=== PATIENT | female | born 1960 | race Caucasian/White ===

== ENCOUNTER 2016-12-16 14:19 | Inpatient (IN) ==
[2017-01-07] MEDS ORDERED: ACETAMINOPHEN 500 MG TABLET PO ONE (06:00)
[2017-01-07] MEDS ORDERED: CEFAZOLIN 1 G INJECTION IVP ONE (06:00)
[2017-01-07] MEDS ORDERED: FAMOTIDINE PB 20 MG/50 ML BAG IV ONE (06:00)
[2017-01-07] MEDS ORDERED: LIDOCAINE 1% (10mg/ml) 10mL MDV SQ ONE (06:00)
[2017-01-07] MEDS ORDERED: ONDANSETRON 4 MG/2 ML INJECTION IVP ONE (06:00)
[2017-01-07] MEDS ORDERED: TRANEXAMIC ACID 1,000 MG in NS 100 ML IV ONE ×2 (06:00→07:00)
[2017-01-07] MEDS ORDERED: NOZIN NASAL SWAB NAS ONE ×2 (06:00→13:46)
[2017-01-07] MEDS ORDERED: METOCLOPRAMIDE 10mg/2ml INJECTION IVP ONE (06:00)
[2017-01-07] MEDS ORDERED: MELOXICAM 15 MG TABLET PO ONE (06:00)
[2017-01-07] MEDS ORDERED: EPINEPHrine 0.25 MG, BUPIVACAINE 0.25% PF 30 ML, MORPHINE SULFATE 15 MG, KETOROLAC INJ ... OPSITE ONE (08:00)
[2017-01-07 08:14] VITALS: BMI 38.2
[2017-01-07] MEDS ORDERED: LIDOCAINE 1% (10mg/ml) 2mL INJ PF SDV ID ONE (08:31)
[2017-01-07] MEDS: LR 1,000 ML IV SCH ×3 (08:35→12:23)
[2017-01-07] MEDS ORDERED: VANCOMYCIN 1,000 MG INJECTION ONE (10:13)
[2017-01-07] MEDS ORDERED: MIDAZOLAM 2mg/2ml INJECTION ONE (10:23)
[2017-01-07] MEDS ORDERED: PROPOFOL 500 MG/50 ML VIAL IV ONE (10:31)
--- NOTE | 2017-01-07 11:03 | History & Physical Update ---
- History and Physical Update Date: 01/07/17 Update: I evaluated this patient and found no changes in the history and clinical exam findings. The treatment plan and recommendations are also unchanged from the previous documentation.
[2017-01-07] MEDS ORDERED: VANCOMYCIN 1,000 MG INJECTION IAR ONE (12:00)
[2017-01-07] MEDS ORDERED: PROPOFOL 20 ML ONE ×2 (12:05)
--- NOTE | 2017-01-07 12:11 | Operative Note ---
- Procedure Date of Admission: 01/07/17 Side: right Preoperative Diagnosis: knee primary DJD Postoperative Diagnosis: Same as preoperative diagnosis. Operation: total knee arthroplasty Surgeon: Westley Alcaraz MD Ota: Cedric Louis Complications: None. Regional/Trunk Block: Spinal Peripheral Nerve Block: Saphenous-Right Estimated Blood Loss: See Anesthesia Record. Fluids: Please see Anesthesia Record. Description of Procedure: and her right knee were identified and marked in the preoperative holding area. She was brought back to the operating suite and placed supine on the operating table. Spinal anesthetic was administered. The operative lower extremity was prepped and draped in a sterile fashion. Timeout was performed. She had a fixed varus deformity. An anterior midline incision followed by medial parapatellar arthrotomy was performed. The tourniquet was not used until cementing. Hemostasis was obtained with electrocautery. The patella was resurfaced to a size 29. She had significant disease in the medial compartment and to a lesser extent in the patellofemoral compartment. The majority of her cartilage loss was on the femur. A distal femoral osteotomy was then performed in 5 of valgus using intramedullary guide. The femur was sized at a 3 and rotation set using the epicondylar axis. Distal femoral cuts were performed with a 4-in-1 cutting block. A proximal tibial cut was then made perpendicular to its long axis using an extramedullary guide. At this point remaining meniscus and osteophytes were removed and joint cocktail was injected throughout soft tissue. Trial components were placed with a 9 mm spacer. This allowed for full extension and flexion and the patella tracked well. The leg was then exsanguinated and the tourniquet inflated to 250 mmHg. The tibia was then stamped at a size 3 at the proper rotation. The bone was then prepared for cementing and Mathew Triathal[employer] components were cemented into place and allowed to cure in extension. The tourniquet was then let down and hemostasis obtained with electrocautery. Betadine solution was used during the curing period for 3 minutes. 1 g of vancomycin powder was placed into the joint before the capsulotomy was repaired with #1 Vicryl. I then left my retail assistant manager close the subcutaneous tissue and skin with 2-0 Vicryl and Monocryl. Dermabond was used on the skin. The drapes were then removed and she was taken to recovery room under the care of anesthesia.
--- NOTE | 2017-01-07 12:11 | Anesthesia Preoperative Report ---
Anesthesia Preoperative Record - Date and Time Date: 01/07/17 Preoperative Diagnosis: OA left knee Proposed Procedure: right total knee arthroplasty NPO Since Date: 01/06/17 NPO Since Time: 23:00 Allergies/Adverse Reactions: Allergies Allergy/AdvReac Type Severity Reaction Status Date / Time succinylcholine Allergy Unknown Prolonged Verified 01/07/17 08:15 [From Anectine] paralyzation - Vital Signs Vital Signs: Temperature 98.4 F 01/07/17 08:13 Pulse Rate 73 01/07/17 08:13 Respiratory Rate 15 01/07/17 08:13 Blood Pressure 158/81 H 01/07/17 08:13 Pulse Oximetry 97 01/07/17 08:13 Height and Weight: Height 5 ft 1 in Weight 91.8 kg Body Mass Index 38.2 - Medications Inpatient Medications: Current Medications Epinephrine HCl 0.25 mg/Bupivacaine HCl 30 ml/Morphine Sulfate 15 mg/Ketorolac Tromethamine 60 mg/Sodium Chloride 65.25 mls @ 1 mls/hr OPSITE INTRAOP ONE PRN Reason: Protocol Stop: 01/10/17 01:14 Last Admin: 01/07/17 11:55 Dose: 1 mls/hr Lactated Ringer's (Lactated Ringers) 1,000 mls @ 50 mls/hr IV .Q20H SERA Last Admin: 01/07/17 10:49 Dose: 50 mls/hr Sodium Chloride (Iv Flush) 10 - 80 ml IVF PRN PRN PRN Reason: Flushing Vancomycin HCl (Vancocin) 1,000 mg IAR O ONE Stop: 01/07/17 12:01 Last Admin: 01/07/17 12:00 Dose: 1,000 mg Home Medications: Home Medications Medication Instructions Recorded Confirmed Type etodolac 400 mg tablet 400 mg PO BID 11/11/16 01/07/17 History hydrocodone 10 mg-acetaminophen 1 - 2 tab PO Q4H PRN 11/11/16 01/07/17 History 300 mg tablet Acetaminophen [Tylenol] 1,000 mg PO Q5H PRN 01/07/17 01/07/17 History Is Patient on Beta Popeye?: No - Medical History Respiratory: Reports: Sleep Apnea (possible) Cardiovascular: DENIES: Angina, Coronary Artery Disease, Hypertension Gastrointestional: DENIES: Gastroesophageal Reflux Disease Other History: Reports: Anesthesia Reactions (pseudocholinesterase deficiency with pt and family members) - Surgical History GI Surgery/Treatments: Reports: Colonoscopy Musculoskeletal Surgery/Tx: Reports: Knee Arthroscopy (Rt x2, Lt x1) Reproductive Surgery/Treatment: Reports: Breast Augmentation/Reduction ( reduction), Dilation and Curettage (x2) Anesthesia Reactions: Other (prolonged paralysis with Sux) - Social History Smoking Status: Never smoker Hx Chewing Tobacco Use: No Second Hand Exposure: No Substance Use Type: does not use - Physical Exam Respiratory Exam: Present: lungs clear Cardiovascular Exam: Present: regular rate and rhythm - Airway Assessment Mallampati Score: III TMD: 3 Fingerbreadths Neck Extension: fair Overall Assessment: may be difficult mask vent, may be difficult intubation - ASA ASA Score: 2 - Plan Anesthesia: General TIVA Regional/Trunk Block: Spinal - Discussion Discussion: Discussed risks/options/alternatives of anesthesia and questions answered. Patient consents. Nursing pain assessment noted. Present for Discussion: spouse Attestation Statement: Prior to the delivery of any anesthetic medication, I examined the patient, developed the plan, obtained the patient's consent and discussed the risk and benefits of the procedure with the patient/guardian. - Additional Information Seen by Anesthesia: Yes
[2017-01-07] MEDS ORDERED: SALINE FLUSH 10ml SYRINGE IVF PRN (12:15)
[2017-01-07] MEDS ORDERED: ROPIVACAINE 0.5% (5mg/ml) 30ml INJ ONE (12:48)
--- NOTE | 2017-01-07 13:09 | Anesthesia Procedure Note ---
Peripheral Nerve Blockade - Procedure Physician: Dino Alcaraz MD Date: 01/07/17 Surgical Procedure: right TKA Discussion: Discussed risks/options/alternatives of anesthesia and questions answered. Patient consents. Nursing pain assessment noted. Block Start: 12:59 Block Stop: 13:03 Blocked Employed: Adductor Canal Indication: Post-Operative Pain Approach: Right Side Confirmed Position: Supine Patient: Consent, Risks/Benefits Discussed, Informed, Post Block Act. Discussed IV Sedation: No (spinal remains in effect) Initial Vital Signs: Temperature 98.4 F 01/07/17 08:13 Temperature Source Oral 01/07/17 08:13 Pulse Rate 73 01/07/17 08:13 Respiratory Rate 15 01/07/17 08:13 Blood Pressure 158/81 H 01/07/17 08:13 Blood Pressure Mean 106 01/07/17 08:13 Blood Pressure Position Sitting 01/07/17 08:13 Pulse Oximetry 97 01/07/17 08:13 Post Vital Signs: Temperature 98.4 F 01/07/17 08:13 Pulse Rate 73 01/07/17 08:13 Respiratory Rate 15 01/07/17 08:13 Blood Pressure 158/81 H 01/07/17 08:13 Pulse Oximetry 97 01/07/17 08:13 Initial Pain Pain Score: 0 Post Block Pain Score: 0 Prep: Chlorhexadine/ETOH Ultrasound Used?: Yes - Injectate Ropivacaine (%): 0.5 Ropivacaine (mL): 30 Was Epi 1:200,000 Used?: No Injection: Injection made incrementally with constant monitoring and aspiration every ml
[2017-01-07] MEDS ORDERED: ONDANSETRON 4 MG/2 ML INJECTION IVP PRN (13:46)
[2017-01-07] MEDS ORDERED: LORazepam 1 MG TABLET PO PRN (13:46)
[2017-01-07] MEDS ORDERED: DiphenhydrAMINE 50 MG/ML INJECTION IVP PRN (13:46)
[2017-01-07] MEDS ORDERED: DiphenhydrAMINE 25 MG CAPSULE PO PRN (13:46)
--- NOTE | 2017-01-07 13:54 | XRay Report ---
Indication: postoperative image PROCEDURE: XR knee RT 2V: Encounter: Initial Comparison: November 11, 2016 Findings: Postoperative changes of right total knee replacement are seen. There is expected postoperative subcutaneous gas. No evidence of hardware failure or acute fracture. No retained radiopaque surgical instruments or sponges. Overlying material causing artifact. Impression: New right total knee prosthesis without evidence of immediate complication. .
[2017-01-07] MEDS: NS 1,000 ML IV SCH (14:00)
[2017-01-07] MEDS: ACETAMINOPHEN 325 MG TABLET PO SCH ×3 (14:36→21:30)
[2017-01-07] MEDS: NOZIN NASAL SWAB NAS SCH ×2 (14:37→21:30)
[2017-01-07] MEDS: Oxycodone *IR* 5 MG TABLET PO PRN ×3 (15:33→21:42)
[2017-01-07] MEDS: ETODOLAC 400 MG PO SCH (16:49)
--- NOTE | 2017-01-07 17:28 | Anesthesia Postoperative Note ---
- Date and Time Date: 01/07/17 Time: 13:20 - Status Patient Participated in Evaluation: Patient Participated in Person Vital Signs: Temperature 98.6 F 01/07/17 14:05 Pulse Rate 74 01/07/17 16:30 Respiratory Rate 15 01/07/17 17:05 Blood Pressure 105/67 01/07/17 16:30 Pulse Oximetry 94 01/07/17 16:30 Oxygen Delivery Method Room Air Respiratory Function: Airway Patent EKG Rhythm: Normal Sinus Rhythm Mental Status: Alert and Oriented Pain Intensity: 0 Hydration: Taking PO Fluids Complications During Recover: None Apparent - Follow-Up Instructions Instructions: Per Surgeon
[2017-01-07] MEDS: CEFAZOLIN 2 G in NS 100 ML IV SCH (18:20)
[2017-01-07] MEDS: DOCUSATE SODIUM 100 MG CAPSULE PO SCH (21:29)
[2017-01-07] MEDS: ASPIRIN *EC* 325 MG TABLET PO SCH (21:30)
[2017-01-07] MEDS ORDERED: SENNOSIDES 8.6 MG TABLET PO SCH (22:00)
[2017-01-08] MEDS: CEFAZOLIN 2 G in NS 100 ML IV SCH (01:14)
[2017-01-08] MEDS: Oxycodone *IR* 5 MG TABLET PO PRN ×4 (01:27→13:10)
[2017-01-08] MEDS: NS 1,000 ML IV SCH (04:20)
[2017-01-08] MEDS: NOZIN NASAL SWAB NAS SCH ×2 (06:08→13:10)
--- NOTE | 2017-01-08 08:10 | Orthopedic Progress Note ---
Date: Subjective/Severity of Illness: Linda is doing well. She is not having much pain but reports the knee is very stiff. She has been mobile with good tolerance. No CP, cough or SOA. BP a little low overnight but improved this AM. Orthopedic Objective PO Vital signs: Temperature 96.4 F L 01/08/17 07:33 Pulse Rate 60 01/08/17 07:33 Respiratory Rate 18 01/08/17 07:33 Blood Pressure 101/63 01/08/17 07:33 Pulse Oximetry 93 01/08/17 04:28 Oxygen Delivery Method Room Air Height and Weight: Height 5 ft 1 in Weight 219 lb 2.232 oz Body Mass Index 38.2 - Constitutional General Appearance: Present: alert, no acute distress - Respiratory Exam Present: non-labored - Extremities Exam Extremities: Present: pulses intact. Absent: calf tenderness - Surgical Site Incision: Mepilex dressing intact, no drainage - Integumentary Exam Present: pink, warm, dry - Neurological Exam Present: no deficits - Psychiatric Exam Present: alert - Labs Result Diagrams: 01/08/17 04:13 01/08/17 04:13 Abnormal lab results 01/08/17 Range/Units 04:13 RBC 3.71 L (4.00-5.20) M/MM3 Hgb 10.9 L (12-16) GM/DL Hct 32.9 L (36-46) % H & H 01/08/17 Range/Units 04:13 Hgb 10.9 L (12-16) GM/DL Hct 32.9 L (36-46) % Hospital Course Summary Disclaimer: The visit summary below is not to be considered part of the above Progress Note.
[2017-01-08] MEDS ORDERED: POLYETHYL GLYCOL 3350 17gm PACKET PO SCH (09:00)
[2017-01-08] MEDS: DOCUSATE SODIUM 100 MG CAPSULE PO SCH (09:36)
[2017-01-08] MEDS: ASPIRIN *EC* 325 MG TABLET PO SCH (09:37)
[2017-01-08] MEDS: ETODOLAC 400 MG PO SCH (09:37)
[2017-01-08] MEDS: ACETAMINOPHEN 325 MG TABLET PO SCH ×2 (09:37→13:11)
[2017-01-08 12:11] VITALS: BP 106/53; PULSE 71; RESP 16; TEMP 97.2; O2SAT 94
[2017-01-08] MEDS ORDERED: SENNOSIDES 8.6 MG TABLET PO PRN (12:44)
--- NOTE | 2017-01-08 12:51 | Discharge Summary ---
Orthopedic Discharge Info Date of admission: 01/07/17 07:54 Attending Physician: Dino Alcaraz MD Consults: 01/07/17 05:39 Consult to Anesthesiology [CONS] Routine Consulting Provider: MAGGY Ochoa Reason For Exam: Preoperative Assessment 01/07/17 13:46 Case Management Consult [CONS] Routine Reason For Exam: Discharge Planning DME-Walker [CONS] Routine Height: 5 ft 1 in Weight: 202 lb 6.15 oz Comment: change dressing in 2 weeks Total Joint Outpatient Therapy [CONS] Routine Comment: change dressing in 2 weeks - Procedures Procedures: TKA 01/07/17 - Laboratory Result Diagrams: 01/08/17 04:13 01/08/17 04:13 Laboratory: Abnormal lab results 01/08/17 Range/Units 04:13 RBC 3.71 L (4.00-5.20) M/MM3 Hgb 10.9 L (12-16) GM/DL Hct 32.9 L (36-46) % H & H 01/08/17 Range/Units 04:13 Hgb 10.9 L (12-16) GM/DL Hct 32.9 L (36-46) % Orthopedic Discharge HPI - HPI Comments This patient was admitted for elective surgical tx of end stage degenerative joint disease that failed to respond to conservative treatment. Further details of this is found in the admission H&P. Orthopedic Hospital Course Hospital course: 01/08/17 12:46 After appropriate preoperative clearance and signing of operative consent, the patient was given IV antibiotics, according to orthopedic protocol. The patient was taken to the operating room and underwent elective total knee arthroplasty. Following surgery, antibiotics were discontinued less than 24 hours according to joint protocol. Appropriate anticoagulants were initiated and SCDs added for DVT prevention. The dressing was clean, dry, and intact. Pain control was obtained via multimodal approach. Bowel motivation addressed with scheduled and PRN medications. Early mobilization was initiated through PT services. Discharge arrangements made by a collaborative effort between the patient and Case Management. Follow-up is scheduled in 2-3 weeks. Discharge instructions given by orthopedic providers and nursing staff at discharge. Discharge condition was good. Ongoing care required?: No Discharge Plan - Med Rec/Dispo Referrals/Follow Up: Dino Alcaraz MD [Physician] - 01/29/17 10:30 am [facility] Instructions: [facility] General Instructions, [facility] Postop Instructions Additional Instructions: [facility] ON 01/10/2017 AT 2:10PM FOR PHYSICAL THERAPY SUSY. PHONE [phone] Prescriptions: New Aspirin *EC* [Ecotrin] 325 mg PO BID #84 tablet Milk of Magnesia [Mom] 30 ml PO DAILY udc Oxycodone *Ir* [Roxicodone *Ir*] 5 - 15 mg PO Q3H PRN #60 tablet PRN Reason: Breakthrough Pain Acetaminophen [Tylenol] 650 mg PO QID tablet Docusate Sodium [Colace] 100 mg PO BID capsule PEG 3350 17gm PACKET [Miralax] 17 gm PO DAILY packet Continue etodolac 400 mg tablet 400 mg PO BID hydrocodone 10 mg-acetaminophen 300 mg tablet 1 - 2 tab PO Q4H PRN PRN Reason: Pain Discontinued Acetaminophen [Tylenol] 1,000 mg PO Q5H PRN PRN Reason: Pain Discharge Instructions/Outpatient Orders: Final Provider Discharge Instructions Location: Determined By Patient
[2017-01-09] MEDS ORDERED: BISACODYL 10 MG SUPPOSITORY RECTALLY SCH (20:00)
== END 2017-01-08 14:26 | disposition home or self-care (01) | DRG 470 ==
LOC: SRG 01-07 07:54 → MERGE 01-07 09:10
PROVIDERS: ADMIT Orthopaedic Surgery; ATTEND Orthopaedic Surgery